=== PATIENT | male | born 1995 | race Two or more races ===

== ENCOUNTER 2018-11-26 08:40 | Emergency (ER) | payer MEDICAID ==
[~2018-11-26] VITALS: Ht 175.3 cm; Wt 108.0 kg
[2018-11-26 08:54] VITALS: BP 125/79
[2018-11-26] MEDS ORDERED: FLUORESCEIN SODIUM OPHTH 1 EA STRIP ONE (09:05)
[2018-11-26] MEDS ORDERED: TDAP [DIPH/PERTUSSIS/TET] 0.5 ML VIAL IM ONE ×2 (09:13→09:30)
[2018-11-26] MEDS ORDERED: TETRACAINE HCL 0.5% OPHTALMIC 15 ML BOTTLE OP ONE (09:30)
[2018-11-26] MEDS ORDERED: FLUORESCEIN SODIUM OPHTH 1 EA STRIP OP ONE (09:30)
--- NOTE | 2018-11-26 09:30 | NUR ---
Patient discharged to home in stable condition. Written and verbal after care instructions given. Patient verbalizes understanding of instruction.
== END 2018-11-26 09:31 | disposition home or self-care (01) ==
LOC: ER 08:40
DX: T15.01XA Foreign body in cornea, right eye, initial encounter (principal); X58.XXXA Exposure to other specified factors, initial encounter; Y93.89 Activity, other specified; Y92.89 Other specified places as the place of occurrence of the external cause; Y99.8 Other external cause status
CPT/HCPCS: 90715